=== PATIENT | female | born 1990 | race Caucasian/White ===

== ENCOUNTER 2021-10-26 13:06 | Emergency (ER) | payer OTHER ==
[~2021-10-26 13:06] MED LIST: MACROBID 100 M100 MG PO
[2021-10-26] MEDS ORDERED: HYDROCODONE-AC1 EACH PO (14:56)
== END 2021-10-26 15:30 | disposition home or self-care (01) ==
LOC: ER1 13:06
DX: S83.92XA Sprain of unspecified site of left knee, initial encounter (principal); F17.200 Nicotine dependence, unspecified, uncomplicated; X58.XXXA Exposure to other specified factors, initial encounter
CPT/HCPCS: 73700; 96372; 99283; J1885

== ENCOUNTER → 2021-11-07 | Outpatient (CLI) | payer OTHER ==
[~2021-11-07] MED LIST changes: +HYDROCODONE-AC1 EACH PO
== END ==
LOC: KOH-I 13:41
DX: M25.462 Effusion, left knee (principal); S83.242A Other tear of medial meniscus, current injury, left knee, initial encounter; S83.282A Other tear of lateral meniscus, current injury, left knee, initial encounter; S83.512A Sprain of anterior cruciate ligament of left knee, initial encounter; S72.432A Displaced fracture of medial condyle of left femur, initial encounter for closed fracture
CPT/HCPCS: 73721